=== PATIENT | male | born 1970 | race Caucasian/White ===

== ENCOUNTER 2023-04-03 09:57 | Emergency (ER) | payer BC ==
[~2023-04-03] VITALS: Ht 177.8 cm; Wt 82.4 kg
[2023-04-03 17:08] VITALS: BP 124/82
--- NOTE | 2023-04-04 13:09 | EKG ---
[facility] [address] [facility] [place], [place] [address] Signed Normal sinus rhythm Normal ECG No previous ECGs available Confirmed by RG MICHEL MD ([id number]) on 04/04/2023 1:09:38 PM Electronically Signed By: RG MICHEL 04/04/23 1309 PATIENT NAME: JOSE MARIA NIELSEN Electrocardiogram DATE OF : 66 PHYSICIAN: RG MICHEL REPORT #: [id number] REPORT IS CONFIDENTIAL AND NOT TO BE RELEASED WITHOUT AUTHORIZATION
== END 2023-04-03 17:08 | disposition short-term general hospital (02) ==
LOC: ED 09:57
DX: R41.2 Retrograde amnesia (principal); R41.1 Anterograde amnesia; Z88.0 Allergy status to penicillin
CPT/HCPCS: 36415; 70450; 70496; 70498; 80053; 85025; 93005; 93010; G0480; J7121; Q9967